=== PATIENT | male | born 1975 | race Caucasian/White ===

== ENCOUNTER → 2017-01-28 | Outpatient (CLI) | payer BC ==
--- NOTE | 2017-01-28 13:04 | XR ---
EXAMINATION TYPE: XR chest 2V DATE OF EXAM: 01/28/2017 11:17 AM HISTORY: I10 hypertension. REFERENCE: NONE. FINDINGS: The lungs are clear. Pleural spaces are clear. Heart size is normal. IMPRESSION: NORMAL CHEST.
== END | disposition home or self-care (01) ==
LOC: RADXRMAIN 10:57
PROVIDERS: ATTEND Family Medicine
DX: Z00.01 Encounter for general adult medical examination with abnormal findings (principal); I10 Essential (primary) hypertension
CPT/HCPCS: 71020

== ENCOUNTER → 2023-10-01 | Outpatient (CLI) | payer BC ==
--- NOTE | 2023-10-01 08:59 | CT ---
EXAMINATION TYPE: CT abdomen w con DATE OF EXAM: 10/01/2023 COMPARISON: None HISTORY: Mass RT kidney, possible renal ca CT DLP: 865.50 mGycm CONTRAST: CT scan of the abdomen is performed with Oral Contrast and with IV Contrast, patient injected with 10 0 mL of Isovue 300. FINDINGS: LUNG BASES-: No visible nodule. No infiltrate. LIVER/GB: No calcified gallstones. There is evidence of hepatic steatosis. No space occupying hepa tic lesion. Biliary tree is of normal caliber. PANCREAS: No inflammation. No distinct mass. SPLEEN: No splenic enlargement. No lesion seen. ADRENALS: No nodule. No thickening. KIDNEYS/BLADDER: No hydronephrosis. No nephrolithiasis. Partially solid partially cystic mass midpo le right kidney measures 4.0 x 3.8 x 3.5 cm and is felt to reflect malignancy until proven otherwise. No additional solid or cystic lesions of either kidney is noted. No evidence for renal vein involvem ent. Urinary bladder grossly unremarkable. BOWEL: Visualized bowel loops are of normal caliber. LYMPH NODES: No greater than 1cm abdominal or pelvic lymph nodes are appreciated. AORTA: No significant abnormality. OSSEOUS STRUCTURES: No significant abnormality is seen. OTHER: No significant additional abnormality is seen. IMPRESSION: 1. Right renal mass felt to reflect malignancy otherwise. 2. Hepatic steatosis.
== END | disposition home or self-care (01) ==
LOC: RADCTMAIN 07:07
PROVIDERS: ATTEND Family Medicine
DX: C64.1 Malignant neoplasm of right kidney, except renal pelvis (principal); N28.89 Other specified disorders of kidney and ureter; K76.0 Fatty (change of) liver, not elsewhere classified
CPT/HCPCS: 74160; Q9967

== ENCOUNTER → 2023-12-03 | Outpatient (CLI) | payer BC ==
--- NOTE | 2023-12-03 09:28 | XR ---
EXAMINATION TYPE: XR chest 2V DATE OF EXAM: 12/03/2023 COMPARISON: 01/28/2017 HISTORY: Chest pain TECHNIQUE: Frontal and lateral views of the chest are obtained. FINDINGS: There is no focal air space opacity. No evidence for pneumothorax. No pleural effusion. The cardiac silhouette size is within normal limits. The osseous structures are grossly intact. IMPRESSION: 1. No acute cardiopulmonary process.
[2023-12-03 13:03] LABS: Basophils # (A) 0.05 X 10*3/uL (0.00-0.10); Basophils % (A) 1.4 %; Eosinophils # (A) 0.24 X 10*3/uL (0.04-0.35); Eosinophils % (A) 6.8 %; HCT 43.7 % (39.6-50.0); Lymphocytes # (A) 0.96 X 10*3/uL (0.90-5.00); Lymphocytes % (A) 27.4 %; MCH 32.7 pg (27.0-32.0); MCHC 34.3 g/dL (32.0-37.0); MCV 95.2 FL (80.0-97.0); Mean Platelet Volume 10.6 FL (9.5-12.2); Monocytes # (A) 0.46 X 10*3/uL (0.20-1.00); Monocytes % (A) 13.1 %; NRBC Per 100 WBC 0 X 10*3/uL (0.00-0.01); Neutrophils # (A) 1.79 X 10*3/uL (1.80-7.70); Platelet Count 165 X 10*3/uL (140-440); RBC 4.59 X 10*6/uL (4.40-5.60); RDW 12.3 % (11.5-14.5); WBC 3.51 X 10*3/uL (4.50-10.00)
[2023-12-03 13:40] LABS: Appearance,Urine Turbid (Clear); Bilirubin,Urine Negative (Negative); Blood,Urine Negative (Negative); Color,Urine Yellow (Yellow); Ketones,Urine Trace (Negative); Nitrite,Urine Negative (Negative); Specific Gravity,Urine 1.019 (1.001-1.030)
[2023-12-03 13:42] LABS: Bacteria,Urine None Seen (None Seen)
[2023-12-03 13:44] LABS: BUN/Creat Ratio 11.73 Ratio (12.00-20.00); Blood Urea Nitrogen 12.9 mg/dL (9.0-27.0); Calcium 9.7 mg/dL (8.7-10.3); Carbon Dioxide 22.6 mmol/L (21.6-31.8); Chloride 105 mmol/L (96-109); Glucose 103 mg/dL (70-110); Potassium 4.2 mmol/L (3.5-5.5); Sodium 140 mmol/L (135-145)
== END | disposition home or self-care (01) ==
LOC: LABPAT 08:26
PROVIDERS: ATTEND Urology
DX: Z01.812 Encounter for preprocedural laboratory examination (principal); D41.01 Neoplasm of uncertain behavior of right kidney; I10 Essential (primary) hypertension; R05.9 Cough, unspecified; R31.29 Other microscopic hematuria; R07.9 Chest pain, unspecified
CPT/HCPCS: 36415; 71046; 80048; 81001; 85025; 86850; 86900; 86901; 87086; 93005

== ENCOUNTER 2023-12-05 08:42 | Observation (INO) | payer BC ==
[2023-11-28 14:44] VITALS: BMI 28.5
--- NOTE | 2023-12-04 07:56 | P.HPIHPCON ---
History of Present Illness H&P Date: 12/04/23 Chief Complaint: Right renal mass This is a 47-year-old male with history of a 3.7 cm right-sided renal mass. Option of a robotic right-sided partial nephrectomy was discussed with him in details. Discussed risk which includes but not limited to bleeding, infection, injury to nearby organ. Discussed the potential of converting into a radical nephrectomy. Discussed risk of needing hemodialysis in the short and long-term if radical nephrectomy is performed. Discussed potential of cancer recurrence and potential needing additional treatments and the need for postoperative surveillance. Medical complications were also discussed. He understood all the risk and agreed to proceed Consent for Procedure: I have explained the operation/procedure to the patient, including the risks, benefits, side effects, alternative therapies (including not receiving the proposed treatment or service), the likelihood of the patient achieving his/her goals, and potential recuperation problems for the procedure/sedation/analgesia, as well as any blood products, if indicated. I also explained to the patient the risks, benefits and side effects of the alternatives, as well as the risks related to not receiving the proposed procedure, care, treatment, or services. Past Medical History Past Medical History: Cancer, Hypertension Additional Past Medical History / Comment(s): basal cell skin cancer. Right kidney mass History of Any Multi-Drug Resistant Organisms: None Reported Past Surgical History: Orthopedic Surgery Additional Past Surgical History / Comment(s): left knee surgery. basal cell skin cancer removal Past Anesthesia/Blood Transfusion Reactions: No Reported Reaction Past Psychological History: No Psychological Hx Reported Smoking Status: Never smoker Past Alcohol Use History: Daily Additional Past Alcohol Use History / Comment(s): 4 rum/cokes per day Past Drug Use History: None Reported - Past Family History Mother Family Medical History: No Reported History Medications and Allergies Home Medications Medication Instructions Recorded Confirmed Type Losartan Potassium 100 mg PO DAILY 11/28/23 11/28/23 History Nebivolol [Bystolic] 5 mg PO DAILY 11/28/23 11/28/23 History Allergies Allergy/AdvReac Type Severity Reaction Status Date / Time No Known Allergies Allergy Verified 11/28/23 14:15 Surgical - Exam - General no distress, no pain - Eyes normal ocular movement, no pale - ENT normal nares, normal mucosa - Respiratory normal expansion, normal respiratory effort - Abdomen Abdomen: soft, non tender - Psychiatric oriented to time, oriented to person, oriented to place Assessment and Plan Assessment: OR for right-sided robotic partial nephrectomy
[2023-12-05] MEDS ORDERED: HYDROmorphone 0.5 MG/0.5 ML SYRINGE IVP PRN (08:53)
[2023-12-05] MEDS ORDERED: LIDOCAINE 1% (10MG/ML) FOR IV START INTRADERMA PRN (08:53)
[2023-12-05] MEDS ORDERED: droPERidol 5 MG/2 ML VIAL IVP ONE (08:53)
[2023-12-05] MEDS ORDERED: DEXAMETHASONE SOD PHOSPHATE 4 MG/ML 1 ML VIAL IV ONE (08:53)
[2023-12-05] MEDS ORDERED: ONDANSETRON 4 MG/2 ML VIAL IVP ONE ×2 (08:53→09:35)
[2023-12-05] MEDS: LACTATED RINGERS 1,000 ML IV SCH (09:25)
[2023-12-05] MEDS ORDERED: LACTATED RINGERS 1,000 ML IV ONE ×2 (09:25→13:46)
[2023-12-05] MEDS ORDERED: DEXAMETHASONE SOD PHOSPHATE 4 MG/ML 1 ML VIAL IVP ONE (09:36)
[2023-12-05] MEDS ORDERED: fentaNYL (PF) 50 MCG/1 ML VIAL IVP ONE ×2 (09:47→09:50)
[2023-12-05] MEDS ORDERED: MIDAZOLAM 2 MG/2 ML VIAL IVP ONE (09:47)
--- NOTE | 2023-12-05 09:59 | P.ANPRN ---
Procedure Note - Anesthesia - Nerve Block Performed Bilateral Erector Spinae Single Time Out Performed: Yes Date of Procedure: 12/05/23 Procedure Start Time: 09:46 Procedure Stop Time: :55 Location of Patient: PreOp Indication: Acute Post-Operative Pain, Requested by Surgeon Sedation Type: Sedate with meaningful contact maintained Preparation: Sterile Prep Position: Prone Needle Types: Pajunk Needle Gauge: 21 Ultrasound used to visualize needle placement: Yes Ultrasound used to observe medication spread: Yes Injectate: 0.5% Ropivacaine (see comment for volume) (20 ml + 10 ml NS + 4 mg Dexamethasone per side) Blood Aspirated: No Pain Paresthesia on Injection Noted: No Resistance on Injection: Normal Image Stored and Saved: Yes Events: Uneventful and Well Tolerated
[2023-12-05] MEDS ORDERED: ONDANSETRON 4 MG/2 ML VIAL IVP PRN (10:07)
[2023-12-05] MEDS ORDERED: NEOSTIGMINE 1 MG/ML 10 ML VIAL ONE (11:00)
[2023-12-05] MEDS ORDERED: SUCCINYLCHOLINE CHLORIDE 200 MG/10 ML VIAL IV ONE (11:00)
[2023-12-05] MEDS ORDERED: LIDOCAINE 1% INJ 10MG/ML (20 ML MDV) ONE (11:00)
[2023-12-05] MEDS ORDERED: MIDAZOLAM 2 MG/2 ML VIAL ONE (11:00)
[2023-12-05] MEDS ORDERED: PHENYLEPHRINE 10 MG/ML VIAL ONE (11:00)
[2023-12-05] MEDS ORDERED: GLYCOPYRROLATE 0.2 MG/ML 2 ML VIAL ONE (11:00)
[2023-12-05] MEDS ORDERED: HYDROmorphone (PF) 1 MG/ML ONE (11:00)
[2023-12-05] MEDS ORDERED: fentaNYL (PF) 50 MCG/ML 2 ML AMP ONE (11:00)
[2023-12-05] MEDS ORDERED: DEXAMETHASONE SOD PHOSPHATE 4 MG/ML 1 ML VIAL ONE (11:00)
[2023-12-05] MEDS ORDERED: ROPIVACAINE 5 MG/ML 30 ML VIAL ONE (11:00)
[2023-12-05] MEDS ORDERED: ROCURONIUM 10 MG/ML (5 ML VIAL) IV ONE (11:00)
[2023-12-05] MEDS ORDERED: MANNITOL 25% 12.5 GM/50 ML VIAL ONE (11:00)
[2023-12-05] MEDS ORDERED: PROPOFOL 10 MG/ML 20 ML VIAL IV ONE (11:00)
[2023-12-05] MEDS ORDERED: SODIUM CHLORIDE 0.9% (PF) 10 ML VIAL ONE (11:00)
[2023-12-05] MEDS ORDERED: BUPIVACAINE (PF) 0.5% 30 ML VIAL SQ ONE (11:05)
--- NOTE | 2023-12-05 14:29 | P.OP ---
Date of Procedure: 12/05/23 Preoperative Diagnosis: Right renal mass Postoperative Diagnosis: Same Procedure(s) Performed: Right-sided robotic partial nephrectomy Implants: None Anesthesia: GREGOR Surgeon: Sunday Das Egg Setter #1: Balta Salomon Estimated Blood Loss (ml): 100 Pathology: other (right renal mass) Condition: stable Disposition: PACU Indications for Procedure: This is a 47-year-old male with history of a 3.7 cm right-sided renal mass. Option of a robotic right-sided partial nephrectomy was discussed with him in details. Discussed risk which includes but not limited to bleeding, infection, injury to nearby organ. Discussed the potential of converting into a radical nephrectomy. Discussed risk of needing hemodialysis in the short and long-term if radical nephrectomy is performed. Discussed potential of cancer recurrence and potential needing additional treatments and the need for postoperative surveillance. Medical complications were also discussed. He understood all the risk and agreed to proceed Description of Procedure: The patient was taken to the operating room . General anesthesia was induced. He was prepped and draped in sterile fashion, and was placed in modified flank position . All pressure points were padded. The abdominal insufflation was achieved with the Veress needle. A 8 mm camera port was placed. Robotic trocars and school bus driver/teacher assistant ports were placed under direct vision. a 5 mm liver retractor was placed. . The robot was docked into place. The colon was mobilized medially by incising along the white line of T[place]t. Next the duodenum was kocherized. Once the bowel, was mobilized. At this time the gonadal vessel was visualized. Once the gonadal vessel and ureter was visualized , next after the psoas plane was developed the ureter and gonadal vessel was retracted anteriorly off the psoas muscle. Dissection proceeded cranially towards the renal hilum.The renal vessels were dissected. The renal artery and the vein was dissected in preparation for clamping. Next attention was carried to the tumor, the area around the tumor was defatted, insuring adequate defatting to identify a normal parenchyma. Manitol was administered. The renal artery was clamped using 2 bulldogs. After clamping the renal artery the tumor was excised sharply with adequate margin, and cautery was used in areas of bleeding. Next the defect was closed in 2 layers using 30V lock for the inner layer, 20V lock in interrupted fashion for the outer layer. Sliding clip technique was used. Next the clamps were removed, there was no evidence of bleeding from the defect, total clamp time was 20 minutes. Hemostatic agents were applied The kidney tumor was placed in an Endo Catch bag. A CRISTINE drain was placed through the lower robotic trocor incision. The robot was then de-docked and the specimen was then removed by extending the school bus driver/teacher assistant port. Fascia was closed with figure eight fashion using #1 PDS. Skin was closed with subcuticular sutures and dermabond. The patient was awoken from general anesthesia in stable condition. all counts were correct Please refer to the final pathology report for final diagnosis
[2023-12-05] MEDS: KETOROLAC 15 MG/ML 1 ML VIAL IVP SCH ×2 (15:49→23:09)
[2023-12-05] MEDS: HYDROmorphone 1 MG/ML 1 ML SYRINGE IVP PRN (16:30)
[2023-12-05] MEDS: D5-0.45% NACL WITH KCL 20MEQ/L 1,000 ML IV SCH ×2 (20:28→20:29)
[2023-12-06] MEDS: HYDROcodone/APAP 5-325MG 1 EACH TAB PO PRN ×4 (03:12→21:03)
[2023-12-06] MEDS: KETOROLAC 15 MG/ML 1 ML VIAL IVP SCH ×3 (06:22→17:53)
[2023-12-06] MEDS: HYDROmorphone 1 MG/ML 1 ML SYRINGE IVP PRN (08:00)
[2023-12-06] MEDS: LOSARTAN 50 MG TAB PO SCH (08:01)
--- NOTE | 2023-12-06 08:39 | P.PN ---
Subjective Progress Note Date: 12/06/23 The patient is in his first postoperative day from a robotic-assisted right partial nephrectomy. He is feeling well. Objective - Vital Signs Vital signs: Vital Signs Temp 98.1 F 12/06/23 06:38 Pulse 50 L 12/06/23 06:38 Resp 18 12/06/23 06:38 BP 143/90 12/06/23 06:38 Pulse Ox 94 L 12/06/23 06:38 FiO2 Intake & Output 12/05/23 12/06/23 12/06/23 18:59 06:59 18:59 Intake Total 2300 1440 Output Total 500 1710 Balance 1800 -270 Weight 95.3 kg Intake: IV 2300 Oral 1440 Output: Drainage 110 Right Lower Abdomen 110 Urine 400 1600 Estimated Blood Loss 100 Other: Voiding Method Indwelling Catheter Assessment and Plan Assessment: Impression: Postoperative day 1 right partial nephrectomy robotic-assisted. Recommendations: I will discontinue his IV Fluids. He'll ambulate. We will observe his drainage output, physical examination and have him ambulate. If he does well he can be discharged home tomorrow.
[2023-12-06] MEDS: NEBIVOLOL 5 MG TAB PO SCH (10:58)
[2023-12-06] MEDS: D5-0.45% NACL WITH KCL 20MEQ/L 1,000 ML IV SCH ×2 (17:08→20:23)
[2023-12-06] MEDS: LACTATED RINGERS 1,000 ML IV SCH (20:23)
[2023-12-07] MEDS: KETOROLAC 15 MG/ML 1 ML VIAL IVP SCH ×2 (00:39→06:12)
[2023-12-07] MEDS: D5-0.45% NACL WITH KCL 20MEQ/L 1,000 ML IV SCH (00:50)
[2023-12-07] MEDS: HYDROcodone/APAP 5-325MG 1 EACH TAB PO PRN ×2 (01:51→11:05)
[2023-12-07 03:20] VITALS: TEMP 97.9
[2023-12-07] MEDS ORDERED: D5-0.45% NACL WITH KCL 20MEQ/L 1,000 ML IV SCH (05:00)
[2023-12-07] MEDS: NEBIVOLOL 5 MG TAB PO SCH (07:40)
[2023-12-07] MEDS: LOSARTAN 50 MG TAB PO SCH (07:40)
[2023-12-07] MEDS: LACTATED RINGERS 1,000 ML IV SCH (07:41)
[2023-12-07 09:17] VITALS: BP 163/97; PULSE 66; RESP 18
--- NOTE | 2023-12-07 10:20 | P.DS ---
Providers Date of admission: 12/06/23 08:34 Attending physician: Sunday Das MD Primary care physician: [facility] Course: The patient is 47. He has a small renal cell carcinoma and underwent a robotic- assisted right partial nephrectomy by 48 hours ago. He has done well. His vital signs are stable. The catheters out is urinating. He is tolerating a regular diet. His abdomen is soft. The drain is removed. His vital signs are stable. He'll be discharged home today. He'll be discharged home a regular diet limited activity [place] for pain he'll follow-up in the office in one week. His condition is good. Pathology is pending Plan - Discharge Summary Discharge Rx Participant: Yes New Discharge Prescriptions: New HYDROcodone/APAP 5-325MG [[place] 5-325] 1 tab PO Q4HR PRN #14 tab PRN Reason: Pain No Action Nebivolol [Bystolic] 5 mg PO DAILY Losartan Potassium 100 mg PO DAILY Discharge Medication List Losartan Potassium 100 mg PO DAILY 11/28/23 [History] Nebivolol [Bystolic] 5 mg PO DAILY 11/28/23 [History] HYDROcodone/APAP 5-325MG [[place] 5-325] 1 tab PO Q4HR PRN #14 tab 12/07/23 [Rx] Follow up Appointment(s)/Referral(s): Sunday Das MD [STAFF PHYSICIAN] - 1 Week Discharge Disposition: HOME SELF-CARE
== END 2023-12-07 11:10 | disposition home or self-care (01) ==
LOC: OR 08:42 → 4SSUR 14:43 → OR 12-06 08:34
PROVIDERS: ADMIT Urology; ATTEND Urology
DX: C64.1 Malignant neoplasm of right kidney, except renal pelvis (principal); G89.18 Other acute postprocedural pain; I10 Essential (primary) hypertension; Z85.828 Personal history of other malignant neoplasm of skin; Z79.899 Other long term (current) drug therapy
CPT/HCPCS: 50543; S2900; 64999; 88307; 94760; 96361; 96365; 96366; 96375; 96376

== ENCOUNTER → 2024-06-16 | Outpatient (CLI) | payer BC ==
--- NOTE | 2024-07-08 08:50 | CT ---
Patient: Solomon Chen Ordering Physician: Unknown, Unknown ID: [id number] Phone, Pager: Phone : N/A Pager: N/A : 1975 Age/Gender: 48Y, M Primary Location: N/A Procedure: ABD W/O AND W [place] dy Date: 06/16/2024 5:48:00 PM EXAMINATION TYPE: CT abdomen wo/w con DATE OF EXAM: 06/26/2024 COMPARISON: 10/01/2023 INDICATION: Renal mass on the right renal cancer DLP: 1508.30 mGycm, Automated exposure control for dose reduction was used. CONTRAST: 100 mL of Isovue 300. Study performed without Oral Contrast TECHNIQUE: Axial images were obtained from above the diaphragm to the pubic rami in the axial plane a t 5 mm thick sections. Reconstructed images are reviewed on the computer in the coronal plane. FINDINGS: Limited CT sections are obtained the lung bases. The lung bases are clear. CT ABDOMEN: Liver: Normal Spleen: Normal Pancreas: Normal Adrenal glands: The adrenal glands are normal. Gallbladder: Normal Kidneys: No masses are evident. Previous posterior lateral right upper pole renal mass has been resec meet. Minimal postsurgical change is present at this location. No recurrent masses are identified. No hydronephrosis is present. There is a tiny cortical renal cyst on the left kidney. Delayed images were obtained through the kidneys, which remain unremarkable. Aorta: Normal Inferior vena cava: Normal. Bowel: Noncontrast images appear unremarkable. The: Multiple scattered small lymph nodes in the periaortic region at the level of the renal arteries . These appear stable from comparison IMPRESSION: 1. No recurrent masses post right renal resection. 2. No suspicious changes for metastasis within the [id number]
--- NOTE | 2024-07-21 14:26 | XR ---
Patient: Solomon Chen P Ordering Physician: Unknown, Unknown ID: [id number] Phone, Pager: Phone : N/A Pager: N/A : 1975 Age/Gender: 48Y, M Primary Location: N/A Procedure: XR chest 2V Study Date: 06/16/2024 6:01:00 PM EXAMINATION TYPE: XR chest 2V DATE OF EXAM: 06/28/2024 12:29 PM CLINICAL INDICATION: Renal cancer COMPARISON: Chest radiographs from12/03/2023 TECHNIQUE: XR chest 2V Frontal view of the chest. FINDINGS: Lungs/Pleura: There is no evidence of pleural effusion, focal consolidation, or pneumothorax. Pulmonary vascularity: Unremarkable. Heart/mediastinum: Cardiomediastinal silhouette is unremarkable. Musculoskeletal: No acute osseous pathology. Other findings: None IMPRESSION: No acute cardiopulmonary disease/process.
== END | disposition home or self-care (01) ==
LOC: RADCTMAIN 17:00
PROVIDERS: ATTEND Urology
DX: C64.1 Malignant neoplasm of right kidney, except renal pelvis (principal)
CPT/HCPCS: 71046; 74170